=== PATIENT | male | born 1975 | race Caucasian/White ===

== ENCOUNTER 2019-07-03 17:44 | Observation (INO) | payer OTHER, SELFPAY ==
[2019-07-03] VITALS (8 sets, daily range): BP systolic 111–152; BP diastolic 70–89; PULSE 70–85; RESP 16–18; TEMP 36.6–37.1; O2SAT 96–99; BMI 23.8
--- NOTE | ~2019-07-03 | XR_ITS ---
EXAMINATION: XR chest 2V EXAM DATE: 07/03/2019 18:29 INDICATION: Left-sided chest pain, left arm pain. TECHNIQUE: Frontal and lateral projections of the chest obtained and reviewed. There is no prior diana dy for comparison. FINDINGS: The lungs are clear. There are no pleural effusions. The cardiomediastinal silhouette is within normal limits. There is no pneumothorax suspected. The bones and soft tissues are unremarkab le. IMPRESSION: Normal chest x-ray exam. Reviewed, dictated and finalized at location A. E EXTRA IMPRESSION: Normal chest x-ray exam.
--- NOTE | 2019-07-03 17:47 | ECG_ITS ---
Measurements Intervals [place] Rate: 77 P: 61 RI: 178 QRS: 56 QRSD: 88 T: 60 QT: 344 QTc: 390 Interpretive Statements SINUS RHYTHM POSSIBLE LEFT ATRIAL ENLARGEMENT INCOMPLETE RIGHT BUNDLE BRANCH BLOCK BORDERLINE ECG Electronically Signed On 07-03-2019 18:29:06 DIVERSIONAL THERAPIST'S ASSISTANT by Sabas Rubin D.O.
[2019-07-03 18:09] LABS: Basophils Absolute Auto 0.1 K/mm3 (0.0-0.1); Basophils Percent Auto 0.6 % (0.2-1.2); Eosinophils Absolute Auto 0.1 K/mm3 (0-0.3); Eosinophils Percent Auto 0.9 % (0-4.4); Hematocrit 50.6 % (42.0-52.0); Hemoglobin 16.9 g/dL (14.0-18.0); Immature Granulocyte Absolute 0.04 K/mm3 (0.00-0.031); Immature Granulocyte Percent A 0.4 % (0-0.5); Lymphocytes Absolute Auto 2.97 K/mm3 (0.9-3.2); Lymphocytes Percent Auto 28.8 % (18.3-44.2); Mean Corpuscular HGB Conc 33.4 g/dl (32-36); Mean Corpuscular Volume 86.9 fl (80-100); Mean Platelet Volume 11.4 fl (7.4-10.4); Monocytes Absolute Auto 0.8 K/mm3 (0.1-0.6); Monocytes Percent Auto 7.3 % (2.6-8.5); Neutrophils Absolute Auto 6.4 K/mm3 (1.3-6.7); Platelet Count Result 207 k/mm3 (150-375); Red Blood Count 5.82 M/mm3 (4.6-6.20); Red Cell Distribution Width 13.1 % (11.5-14.5); White Blood Count 10.3 K/mm3 (4.5-10.0)
[2019-07-03 18:20] LABS: Blood Urea Nitrogen 22 mg/dL (9-20); Calcium 9.2 mg/dL (8.4-10.2); Carbon Dioxide 28 mmol/L (22-30); Chloride 99 mmol/L (98-107); Estimated CRCL calculation 80 ml/min; Estimated Glomerular Filt Rate > 60; Glucose 93 mg/dL (75-110); Potassium 4.3 mmol/L (3.4-5.0); Sodium 137 mmol/L (137-145)
[2019-07-03 18:25] LABS: Prothrombin Time 12.5 Seconds (11.1-14.7)
[2019-07-03 18:26] LABS: Partial Thromboplastin Time 27.7 SECONDS (22.3-36.8)
[2019-07-03 18:32] LABS: Troponin I < 0.012 ng/mL (0.000-0.034)
--- NOTE | 2019-07-03 19:43 | ED.ABDPAIN ---
HPI - Abdominal Pain General Chief Complaint: Chest Pain Stated Complaint: intermittent chest pain Time Seen by Provider: 07/03/19 19:39 Source: patient and RN notes reviewed Mode of arrival: ambulatory Limitations: no limitations History of Present Illness HPI narrative: Indigestion like substernal chest pain (started last night, then started again around 11 AM, went away and started again this evening) No fever No real SOB Mild pain going into lt arm Related Data Home Medications Medication Instructions Recorded Confirmed testosterone cypionate 200 mg/mL 200 mg IM WEEKLY ml 05/18/19 intramuscular oil Allergies Allergy/AdvReac Type Severity Reaction Status Date / Time Penicillins Allergy Mild Hives Verified 07/03/19 18:01 [facility] Past Medical History Medical History (Updated 05/24/19 @ 13:02 by Tarah Loyola) Melanoma Vertigo Social History Social History Second hand tobacco smoke exposure: No Alcohol intake: current Course Vital Signs Vital signs: Vital Signs Temperature 98.8 F 07/03/19 17:57 Pulse Rate 79 07/03/19 17:57 Respiratory Rate 18 07/03/19 17:57 Blood Pressure 124/83 07/03/19 17:57 Pulse Oximetry 98 07/03/19 17:57 Temperature 98.8 F 07/03/19 17:57 Pulse Rate 79 07/03/19 17:57 Respiratory Rate 18 07/03/19 17:57 Blood Pressure 124/83 07/03/19 17:57 Pulse Oximetry 98 07/03/19 17:57 MDM - Abdominal Pain Lab Data Result diagrams: 07/03/19 18:01 07/03/19 18:01 Labs: Lab Results 07/03/19 07/03/19 07/03/19 Range/Units 18:01 18:01 18:01 WBC 10.3 H (4.5-10.0) K/mm3 RBC 5.82 (4.6-6.20) M/mm3 Hgb 16.9 (14.0-18.0) g/dL Hct 50.6 (42.0-52.0) % MCV 86.9 (80-100) fl MCH 29.0 (26-34) pg MCHC 33.4 (32-36) g/dl RDW 13.1 (11.5-14.5) % Plt Count 207 (150-375) k/mm3 MPV 11.4 H (7.4-10.4) fl Immature Gran % (Auto) 0.4 (0-0.5) % Neut % (Auto) 62.0 (45.5-73.1) % Lymph % (Auto) 28.8 (18.3-44.2) % [place] % (Auto) 7.3 (2.6-8.5) % Eos % (Auto) 0.9 (0-4.4) % Baso % (Auto) 0.6 (0.2-1.2) % Lymph # (Auto) 2.97 (0.9-3.2) K/mm3 [place] # (Auto) 0.8 H (0.1-0.6) K/mm3 Eos # (Auto) 0.1 (0-0.3) K/mm3 Baso # (Auto) 0.1 (0.0-0.1) K/mm3 Abs Immat Gran (auto) 0.04 H (0.00-0.031) K/mm3 Absolute Neuts (auto) 6.4 (1.3-6.7) K/mm3 Absolute Nucleated RBC 0.0 (0.0-0.012) K/mm3 Nucleated RBC % 0.0 (0.0-0.2) % PT 12.5 (11.1-14.7) Seconds INR 1.0 APTT 27.7 (22.3-36.8) SECONDS Sodium 137 (137-145) mmol/L Potassium 4.3 (3.4-5.0) mmol/L Chloride 99 (98-107) mmol/L Carbon Dioxide 28 (22-30) mmol/L BUN 22 H (9-20) mg/dL Creatinine 1.20 (0.7-1.3) mg/dL Estim Creat Clear Calc 80 ml/min Estimated GFR > 60 (59 - ) Glucose 93 (75-110) mg/dL Calcium 9.2 (8.4-10.2) mg/dL Total Bilirubin Direct Bilirubin AST ALT Alkaline Phosphatase Troponin I < 0.012 (0.000-0.034) ng/mL Total Protein Albumin Lipase 07/03/19 Range/Units 18:01 WBC (4.5-10.0) K/mm3 RBC (4.6-6.20) M/mm3 Hgb (14.0-18.0) g/dL Hct (42.0-52.0) % MCV (80-100) fl MCH (26-34) pg MCHC (32-36) g/dl RDW (11.5-14.5) % Plt Count (150-375) k/mm3 MPV (7.4-10.4) fl Immature Gran % (Auto) (0-0.5) % Neut % (Auto) (45.5-73.1) % Lymph % (Auto) (18.3-44.2) % [place] % (Auto) (2.6-8.5) % Eos % (Auto) (0-4.4) % Baso % (Auto) (0.2-1.2) % Lymph # (Auto) (0.9-3.2) K/mm3 [place] # (Auto) (0.1-0.6) K/mm3 Eos # (Auto) (0-0.3) K/mm3 Baso # (Auto) (0.0-0.1) K/mm3 Abs Immat Gran (auto) (0.00-0.031) K/mm3 Absolute Neuts (auto) (1.3-6.7) K/mm3 Absolute Nucleated RBC (0.0-0.012) K/mm3 Nucleated RBC % (0.0-0.2) % PT (11.1-14.7) Seconds INR APTT (22.3-36.8) SECONDS Sodium (137-145) mmol/L Potassium (3.4
--- NOTE | 2019-07-03 19:51 | ED.CHESTPAIN ---
HPI - Chest Pain General Chief Complaint: Chest Pain Stated Complaint: intermittent chest pain Time Seen by Provider: 07/03/19 19:39 Source: patient and RN notes reviewed Mode of arrival: ambulatory Limitations: no limitations History of Present Illness HPI narrative: Pt is a 44 y/o male who presents to the ED with c/o intermittent substernal chest pain. He notes that he has had intermittent episodes of pain in his lower chest for awhile. Pt states that his pain feels similar to indigestion. He states that he developed pain in his substernal chest last night. He notes that his pain had resolved when he woke up this morning, but states that his pain returned around 11 AM this morning. Pt notes that his pain then resolved throughout most of the day, but states that it returned again this evening. He notes that his pain intermittently radiates into his lt arm. Pt denies any acute fever, chills, or SOB. MD complaint: chest pain Onset (ago): day(s) (1) Timing of current episode: episodic Prior episodes: Yes Pain location: substernal Pain radiation: left arm Associated symptoms: other (none) Related Data Home Medications Medication Instructions Recorded Confirmed testosterone cypionate 200 mg/mL 200 mg IM WEEKLY ml 05/18/19 intramuscular oil Allergies Allergy/AdvReac Type Severity Reaction Status Date / Time Penicillins Allergy Mild Hives Verified 07/03/19 18:01 Review of Systems Review of Systems: All systems reviewed & are unremarkable except as noted in HPI and below Constitutional: Constitutional: Denies chills and Denies fever(s) Cardiovascular: Cardiovascular: Reports chest pain (substernal chest pain radiating into lt arm) Respiratory: Respiratory: Denies dyspnea PMFSH Past Medical History Medical History Bronchitis Diverticulitis Melanoma Vertigo Surgical History Surgical History No significant past surgical history Social History Social History Second hand tobacco smoke exposure: No Alcohol intake: current Comments PCP is Dr. Dong. Exam Narrative: Exam Narrative: APPEARANCE: No acute distress, nontoxic, resting in bed EYES: EOMI HEENT: Normocephalic, atraumatic, OMM RESPIRATORY: No respiratory distress Clear to auscultation bilaterally with no rhonchi wheezing or rales. CARDIOVASCULAR: Regular rate and rhythm without murmurs rubs or gallops. ABDOMINAL: Soft, nontender, nondistended, no rebound or guarding MUSCULOSKELETAl: Moves all extremities. No clubbing, cyanosis or edema. NEURO: Awake and alert. Following commands, speech normal, no focal deficits SKIN:: Warm, dry. No rashes lesions or abrasions PSYCHIATRIC: Normal affect/mood, Course Course Emergency Course: States chest pain is resolved at this time Discussed with patient and family results of workup and diagnosis. Discussed need for admission. Patient and family understand and agree to current treatment plan Consultations Consultation #1: Discussed case with Telecommunications Specialist, Dr. Lau. Advised to admit the pt [facility]. Date: 07/03/19 Time: 20:40 Vital Signs Vital signs: Vital Signs Temperature 98.8 F 07/03/19 17:57 Pulse Rate 79 07/03/19 17:57 Respiratory Rate 18 07/03/19 17:57 Blood Pressure 124/83 07/03/19 17:57 Pulse Oximetry 98 07/03/19 17:57 Temperature 98 F 07/03/19 20:09 Pulse Rate 72 07/03/19 20:12 Respiratory Rate 16 07/03/19 20:09 Blood Pressure 126/84 07/03/19 20:09 Pulse Oximetry 98 07/03/19 20:14 MDM - Chest Pain Lab Data Result diagrams: 07/03/19 18:01 07/03/19 18:01 Labs: Lab Results 07/03/19 07/03/19 07/03/19 Range/Units 18:01 18:01 18:01 WBC 10.3 H (4.5-10.0) K/mm3 RBC 5.82 (4.6-6.20) M/mm3 Hgb 16.9 (14.0-18.0) g/dL Hct 50.6 (42.0-52.0) % [facility]
[2019-07-03 19:53] LABS: Alanine Aminotransferase 24 U/L (4-50); Albumin Level 4.3 g/dL (3.5-5.1); Alkaline Phosphatase 54 U/L (38-126); Aspartate Amino Transferase 22 U/L (17-59); Bilirubin,Total 0.7 mg/dL (0.2-1.3); Lipase 132 U/L (23-300)
[2019-07-03] MEDS: ASPIRIN 81 MG CHEWABLE TABLET 324 MG PO (20:15)
[2019-07-03 20:28] LABS: D Dimer 0.27 ug/mL (<0.48)
[2019-07-03 21:14] LABS: Troponin I < 0.012 ng/mL (0.000-0.034)
[2019-07-03 21:27] LABS: Cholesterol 167 mg/dL (0-200); HDL Direct 26 mg/dL; Triglycerides 166 mg/dL (<150)
[2019-07-03 21:38] LABS: LDL Cholesterol Direct 131 mg/dL
--- NOTE | 2019-07-04 | EST_ITS ---
Patient Info Name: Chance Ramsey Age: 44 years : 1975 Gender: Male Ht: 74 in Wt: 186 lbs BSA: 2.10 m2 HR: 71 bpm BP: 120 / 90 mmHg Heart Rhythm: Sinus Rhythm Technical Quality: Good Exam Date: 07/04/2019 9:25 AM Exam Location: [facility] Patient Status: Outpatient Admit Date: 07/03/2019 Staff Ordering Physician: Ozzie Lau MD Flotation Tank Operator: Noy Sarmiento RDCS Attending Provider: Ozzie Lau MD Exercise Technologist: Cony Guzman RDCS Exercise Physician: CARLY Exam Type: CA stress echo Study Info Indications R07.89 - Other chest pain Treadmill exercise stress echocardiogram is performed. Summary 1. Patient exercised on adolfo protocol for 13 minutes and 14 seconds, achieving 14 METs. Heart rate was 67 at rest and increased to 181 which was 102% of max predicted heart rate. BP was 120/90 at rest and increased to 168/84 at peak exercise. Resting EKG showed normal sinus rhythm. Peak exercise EKG revealed sinus tachycardia with no ST changes. Resting echo showed normal LV function with EF of 55%. At peak exercise left ventricualr function improved to EF of > 70% with no regional wall motion abnormalities. in summary, stress EKG and stress echocardiogram both negative for ischemia. No arrhythmia noted Normal Heart rate and BP response to exercise. Protocol: Adolfo Stress ECG Details Stage: REST Duration (min): 1 min : 4 sec Speed (mph): 0.0 Grade (%): 0 HR (bpm): 70 SBP (mmHg): 120 DBP (mmHg): 90 METS: --- Stage: REST Duration (min): 6 min : 55 sec Speed (mph): 0.0 Grade (%): 0 HR (bpm): 71 SBP (mmHg): 120 DBP (mmHg): 90 METS: --- Stage: STAGE 1 Duration (min): 1 min : 0 sec Speed (mph): 1.7 Grade (%): 10 HR (bpm): 92 SBP (mmHg): 120 DBP (mmHg): 90 METS: --- Stage: STAGE 1 Duration (min): 2 min : 0 sec Speed (mph): 1.7 Grade (%): 10 HR (bpm): 90 SBP (mmHg): 120 DBP (mmHg): 90 METS: --- Stage: STAGE 1 Duration (min): 3 min : 0 sec Speed (mph): 1.7 Grade (%): 10 HR (bpm): 93 SBP (mmHg): 135 DBP (mmHg): 66 METS: --- Stage: STAGE 2 Duration (min): 1 min : 0 sec Speed (mph): 2.5 Grade (%): 12 HR (bpm): 103 SBP (mmHg): 135 DBP (mmHg): 66 METS: --- Stage: STAGE 2 Duration (min): 2 min : 0 sec Speed (mph): 2.5 Grade (%): 12 HR (bpm): 108 SBP (mmHg): 155 DBP (mmHg): 72 METS: --- Stage: STAGE 2 Duration (min): 3 min : 0 sec Speed (mph): 2.5 Grade (%): 12 HR (bpm): 107 SBP (mmHg): 155 DBP (mmHg): 72 METS: --- Stage: STAGE 3 Duration (min): 1 min : 0 sec Speed (mph): 3.4 Grade (%): 14 HR (bpm): 117 SBP (mmHg): 154 DBP (mmHg): 77 METS: --- Stage: STAGE 3 Duration (min): 2 min : 0 sec Speed (mph): 3.4 Grade (%): 14 HR (bpm): 118 SBP (mmHg): 154 DBP (mmHg): 77 METS: --- Stage: STAGE 3 Duration (min): 3 min
--- NOTE | 2019-07-04 00:03 | ADMGEN ---
This patient, Chanec Ramsey, was admitted to IMU Room 209-01. Patient/family oriented to hospital policies and general routines including ID bracelet, bed and alarms, visiting hours, pain management, procedures, bathroom and other care routines, personal items, smoking policy, room service/diet, and visiting hours. Valuables list has been completed. Information on how to activate the Rapid Response Team has been discussed. Patient/Family are encouraged to report perceived risks to care and to ask questions if they do not understand what they are told or what they should do.
[2019-07-04 00:34] VITALS: PULSE 82
[2019-07-04 00:39] LABS: Troponin I < 0.012 ng/mL (0.000-0.034)
[2019-07-04 02:00] VITALS: PULSE 84
[2019-07-04 04:00] VITALS: BP 109/75; PULSE 68; PULSE 73; RESP 18; RESP 20; TEMP 36.7; O2SAT 97; O2SAT 99
[2019-07-04 05:26] LABS: Cholesterol 158 mg/dL (0-200); HDL Direct 23 mg/dL; Triglycerides 199 mg/dL (<150)
[2019-07-04 05:37] LABS: LDL Cholesterol Direct 122 mg/dL
[2019-07-04 06:00] VITALS: PULSE 72
[2019-07-04 08:00] VITALS: PULSE 73
[2019-07-04 08:15] VITALS: BP 112/70; PULSE 70; RESP 18; TEMP 36.1; O2SAT 98
[2019-07-04] MEDS: ASPIRIN 81 MG CHEWABLE TABLET PO (08:23)
--- NOTE | 2019-07-04 09:02 | PM.IMHP ---
H&P: HPI History of Present Illness Chief complaint: chest pain Narrative: Chance Ramsey is a 44 year old male with no significant past medical history who presented with chest pain. He reports on and off chest pain described as indigestion over the last 2 weeks. Yesterday he had recurrent chest pain with episodes lasting longer than before so decided to seek medical attention. He reports pain mostly at rest. No assoicated nausea however he admits to mild shortness of breath when he has the chest pain. He is able to exercise with no symptoms. Currently pain free. EKG showed sinus rhythm at HR of 77 with no ischemic changes. Trop negative. Labs notable for Cr of 1.2 He had colonscopy in 2019 for follow up on diverticular disease. Never had EGD before. He is not on any scheduled medications. He admits to chewing tobacco. Father at young age in care accident. Mother healthy. Grandmother had a stroke Review of Systems Review of Systems: All systems reviewed & are unremarkable except as noted in HPI and below Constitutional: Constitutional: Denies fatigue and Denies headache(s) Eyes: Eyes: Denies blurry vision ENT: Reports hearing normal and Denies headache(s) Cardiovascular: Cardiovascular: Reports chest pain, Denies diaphoresis, Denies pedal edema, Denies leg edema, Denies lightheadedness, Denies palpitations and Denies dyspnea Respiratory: Respiratory: Denies cough and Denies dyspnea Gastrointestinal: Gastrointestinal: Denies abdominal pain Musculoskeletal: Musculoskeletal: Denies back pain Neurologic: Reports Normal hearing present and Denies headache(s) Psychiatric: Psychiatric: Denies anxiety Endocrine: Endocrine: Denies fatigue and Denies palpitations COUNT INCLUDES THE [facility] Past Medical History Medical History Bronchitis Diverticulitis Melanoma Vertigo Surgical History Surgical History No significant past surgical history Family History Family History Other Unknown family medical history Social History Social History Smoking status: Never smoker Smokeless tobacco user: chewing tobacco Second hand tobacco smoke exposure: No Alcohol intake: current Drinks per week: 1 Substance use: never Substance use type: does not use Spiritual care concerns: No Meds Home Medications and Allergies Home Medications Medication Instructions Recorded Confirmed Type testosterone cypionate 200 mg/mL 200 mg IM WEEKLY ml 05/18/19 07/04/19 History intramuscular oil Allergies Allergy/AdvReac Type Severity Reaction Status Date / Time Penicillins Allergy Mild Hives Verified 07/03/19 18:01 Vital Signs Vital Signs - 24 hr 07/03/19 17:57 07/03/19 19:02 07/03/19 20:09 Temperature 37.1 C 36.6 C Pulse Rate 79 70 74 Respiratory Rate 18 16 16 Blood Pressure 124/83 121/81 126/84 Pulse Oximetry 98 98 97 07/03/19 20:12 07/03/19 20:14 07/03/19 21:13 Temperature Pulse Rate 72 85 Respiratory Rate 18 Blood Pressure 152/73 H Pulse Oximetry 98 96 07/03/19 22:35 07/03/19 22:45 07/04/19 00:34 Temperature 36.6 C Pulse Rate 78 72 82 Respiratory Rate 18 18 Blood Pressure 111/70 135/89 Pulse Oximetry 99 99 07/04/19 02:00 07/04/19 04:00 07/04/19 06:00 Temperature 36.7 C Pulse Rate 84 68 72 Respiratory Rate 20 Blood Pressure 109/75 Pulse Oximetry 97 07/04/19 08:15 Temperature 36.1 C L Pulse Rate 70 Respiratory Rate 18 Blood Pressure 112/70 Pulse Oximetry 98 Exam Const: General: no acute distress Eyes: Sclera: sclerae normal Neck: Neck: no JVD Carotids: no bruits Resp: Effort & Inspection: normal respiratory effort Auscultation: clear to auscultation bilaterally Cardio: Rate: regular rate and not tachycardic Rhythm: regul
--- NOTE | 2019-09-01 17:06 | PM.DS ---
DS: Diagnosis Admitting Diagnosis Admitting Diagnosis: Chest pain, unspecified DS: Summary Time Spent with Patient Time attestation: 44 year old male with no significant past medical history who presented with chest pain. He reports on and off chest pain described as indigestion over the last 2 weeks. Yesterday he had recurrent chest pain with episodes lasting longer than before so decided to seek medical attention. He reports pain mostly at rest. No assoicated nausea however he admits to mild shortness of breath when he has the chest pain. He is able to exercise with no symptoms. Currently pain free. EKG showed sinus rhythm at HR of 77 with no ischemic changes. Trop negative. Labs notable for Cr of 1.2 He is not on any scheduled medications. He admits to chewing tobacco. Father at young age in care accident. Mother healthy. Grandmother had a stroke . Patient was admitted for further work up for the chest pain. He underwent stress echocardiogram that was negative for ischemia. Total time spent providing and/or coordinating discharge services: Exam Const: General: no acute distress Eyes: Sclera: sclerae normal Neck: Neck: no JVD Carotids: no bruits Resp: Effort & Inspection: normal respiratory effort Auscultation: clear to auscultation bilaterally Cardio: Rate: regular rate and not tachycardic Rhythm: regular rhythm Heart sounds: no gallops, no murmurs and no rubs GI: GI Palp: Yes Soft to palpation and No Tenderness to palpation present (GI) Skin: General skin exam: normal color Neuro: Cranial nerves: Yes Normal hearing present Speech: normal speech Extrem: General: normal to inspection and no edema Psych: Affect: normal affect Discharge Plan Discharge Attending physician on discharge: Christine Zamna Consulting providers: Liam Allison ; Sabas Rubin ; Leigh Dong Discharging Clinician: Christine Zaman Anticipated Discharge Date/Time: 07/04/19 09:50 Patient Disposition: Home, Self-Care Activity: may shower and unlimited Diet: as tolerated Patient Instructions: Chest Pain (DC), Pain Management (DC), How to Quit Using Smokeless Tobacco (DC) Stand Alone Forms: General Discharge Information Follow-up/Referrals: Leigh Dong MD [Primary Care Provider] - Discharge Medications: No Action testosterone cypionate 200 mg/mL oil 200 mg IM .[id number] Qty: 6 RF: 0 Date of admission: 07/03/19 20:46 Primary Care Provider: Leigh Dong Admitting Provider: Ozzie Lau Discharge Date/Time: 07/04/19 10:22 Attending physician on admission: Christine Zaman Condition: Stable
== END 2019-07-04 10:22 | disposition home or self-care (01) ==
LOC: ANHED 21:09 → ANHIMU 07-04 00:55
PROVIDERS: Admitting Provider Specialist; Emergency Provider Emergency Medicine; PCP Family Medicine; Visit Provider Internal Medicine
DX: R07.9 Chest pain, unspecified (principal); K57.90 Diverticulosis of intestine, part unspecified, without perforation or abscess without bleeding; F17.220 Nicotine dependence, chewing tobacco, uncomplicated; Z88.0 Allergy status to penicillin
CPT/HCPCS: 36415; 71046; 80048; 80061; 80076; 83690; 84484; 85025; 85380; 85610; 85730; 93005; 93351; 99285; A9270; G0378

== ENCOUNTER 2020-02-27 06:51 | Outpatient (CLI) | payer OTHER, SELFPAY ==
--- NOTE | 2020-03-02 00:12 | SLEEP_ITS ---
Home Sleep Study DATE OF STUDY: 02/27/2020 ORDERING PHYSICIAN: Dr. Leigh Dong. REASON FOR THE STUDY: Somnolence. HISTORY: This patient is a 44-year-old male, 62 inches tall, weighing 183 pounds, with a body mass index of 23.5. He has complaints of low testosterone, on injections. He has occasional snoring. It is rarely loud enough that others complain about it. He occasionally has trouble sleeping with cold. He does not wake up gasping for breath at night, does not have breathing problems at night observed by others. Does not sweat excessively at night, notices heart pounding irregularly at night, fall asleep during the day, fall asleep involuntarily or while driving, fall asleep during physical effort and does not have loss of muscle tone with strong emotion. He does not have daytime difficulties due to his excessive sleepiness. He does not have loss of muscle tone with strong emotion. He does not feel paralyzed on waking or falling asleep. Does not have vivid dreamlike scenes upon awakening or falling asleep. He is never afraid to go to sleep and does not have nightmares. He occasionally remembers his dreams and occasionally has racing thoughts. He rarely feels sad or depressed, occasionally has anxiety. He does not have muscular tension. He occasionally notices parts of his body jerking. He rarely kicks at night. He does not have crawly achy feelings in the legs or leg pain at night. He does not have morning jaw pain. He frequently grinds his teeth at night. He rarely is bothered by pain during the day never is awakened by pain at night. He rarely wakes up feeling stiff in the morning with sore achy muscles or pain in the neck and spine. He goes to bed between 9 and 10 p.m., falling asleep within 15 minutes waking once at night to go to the bathroom and eat a snack. He wakes in the morning at 6 a.m. Weekend schedule is the same, sleeping 1 hour later. He does not take naps. An occasional short nap might be refreshing. Most of the time he feels good in the morning. He feels better in the morning and afternoon than in the evening. MEDICAL COMORBIDITIES: History of melanoma, occasional heartburn, hypogonadism. MEDICATIONS: Testosterone 200 mg injected weekly. HABITS: Never smoked tobacco. He uses chewing tobacco. He has one alcoholic beverage a week. He does drink caffeine 1 beverage a day. DESCRIPTION OF THE STUDY: On the [place] Sleepiness Scale, his score is 6. This was conducted as an unattended type III portable home sleep test with 4-channel monitoring including respiratory effort channel, snoring channel, oxygen saturation channel, and heart rate channel. This study was scored using [facility] guidelines. Duration of the study was 9 hours 8 minutes. The apnea-hypopnea index is 21. The oxygen desaturation index is 30. Lowest desaturation was 41%. Average saturation 89% which is below normal. He had 16 apneas. The majority 62% were central, 10 apneas, 38% or 6 apneas were obstructive. There were 172 hypopneas, 722 snoring events, and 171 desaturations spending 104 minutes below 88%, which was 30% of the study. Heart rate ranged from 58 to 117. IMPRESSION: This home sleep test shows evidence of at least moderate sleep-disordered breathing, primarily central events, 62% of the apneas were central, G47.33. He also appears to have obstructive sleep apnea with a 3rd of the apneas being obstructive and likely the majority of the hypopneas. The patient may have complex sleep apnea. He has significant hypoxemia with frequent deep desaturations throughout the night. This is suggestive of some underlying pulmonary physiology perhaps. The baseline saturation was 89% and he spent 104 minutes, 30% of the study below 88%. This is out of propo
== END 2020-02-27 06:52 | disposition home or self-care (01) ==
LOC: ANHCSM 06:52
PROVIDERS: PCP Family Medicine; Visit Provider Family Medicine
DX: G47.33 Obstructive sleep apnea (adult) (pediatric) (principal)
CPT/HCPCS: 95806